=== PATIENT | female | born 1990 | race Caucasian/White ===

== ENCOUNTER 2016-10-21 08:07 | Emergency (ER) | payer BC ==
[2016-10-21 08:21] VITALS: BP 93/62
--- NOTE | 2016-10-21 08:45 | UC ---
Skin Complaint HPI - HPI Summary HPI Summary: 25 female about 48 hours s/p insect sting to left navarro was worse yesterday red and swollen hurts to touch hx of severe local reactions to insect sting - History of Current Complaint Chief Complaint: UCSkin Time Seen by Provider: 10/21/16 08:33 Stated Complaint: BEE STING LEFT LEG Hx Obtained From: Patient Hx Last Menstrual Period: 09/29/16 Onset/Duration: Gradual Onset, Lasting Hours Onset Severity: Moderate Current Severity: Mild Pain Intensity: 3 Pain Scale Used: 0-10 Numeric Location: Discrete Character: Swelling, Pruritus, Pain, Redness, Raised Aggravating: Touch Alleviating: Nothing Associated Signs & Symptoms: Positive: Tenderness - Allergy/Home Medications Allergies/Adverse Reactions: Allergies Allergy/AdvReac Type Severity Reaction Status Date / Time No Known Allergies Allergy Verified 10/21/16 08:21 Home Medications: Home Medications Diphenhydramine HCl [Benadryl Allergy 25 MG CAP] 25 mg PO PRN 10/21/16 [History] Review of Systems Constitutional: Negative Skin: Negative Eyes: Negative ENT: Negative Respiratory: Negative Cardiovascular: Negative Gastrointestinal: Negative Genitourinary: Negative Motor: Negative Neurovascular: Negative Musculoskeletal: Negative Neurological: Negative Psychological: Negative All Other Systems Reviewed And Are Negative: Yes PMH/Surg Hx/FS Hx/Imm Hx Previously Healthy: Yes - Surgical History Surgical History: Yes Surgery Procedure, Year, and Place: TONSILLECTOMY - Family History Known Family History: Positive: Hypertension Negative: Cardiac Disease, Diabetes - Social History Alcohol Use: Rare Substance Use Type: None Smoking Status (MU): Never Smoked Tobacco Physical Exam Triage Information Reviewed: Yes Appearance: Well-Appearing, No Pain Distress, Well-Nourished Vital Signs: Initial Vital Signs Temp 97.7 F 10/21/16 08:15 Pulse 82 10/21/16 08:15 Resp 14 10/21/16 08:15 BP 93/62 10/21/16 08:15 Pulse Ox 98 10/21/16 08:15 Vital Signs Reviewed: Yes Eyes: Positive: Conjunctiva Clear ENT: Positive: Hearing grossly normal. Negative: Nasal congestion, Nasal drainage, Trismus, Muffled/hoarse voice Neck: Positive: Supple, Nontender, No Lymphadenopathy Respiratory: Positive: Lungs clear, Normal breath sounds, No respiratory distress Cardiovascular: Positive: RRR, No Murmur. Negative: Tachycardia, Bradycardia Musculoskeletal: Positive: ROM Intact Neurological: Positive: Alert Psychological Exam: Normal Skin Exam: Other - see image Course/Dx - Diagnoses Provider Diagnoses: local reaction to insect sting Discharge - Discharge Plan Condition: Stable Disposition: HOME Prescriptions: Prednisone 60 mg PO DAILY #9 tab Patient Education Materials: Insect Bite or Sting (ED) Referrals: Rey Amezquita MD [Primary Care Provider] - 3 Days (if not better) Additional Instructions: continue current treatment Images Front/Back of Body, Lg ([place]): 1 - red/swollen/no retained stinger
== END 2016-10-21 08:53 | disposition home or self-care (01) ==
LOC: UCCORT 08:07
DX: S80.862A Insect bite (nonvenomous), left lower leg, initial encounter (principal); W57.XXXA Bitten or stung by nonvenomous insect and other nonvenomous arthropods, initial encounter; Y93.9 Activity, unspecified; Y92.9 Unspecified place or not applicable
CPT/HCPCS: 99212; G0463

== ENCOUNTER 2016-10-22 16:33 | Emergency (ER) | payer BC ==
[2016-10-22 17:23] VITALS: BP 108/59
[2016-10-22] MEDS ORDERED: Fluorescein Sodium TOPICAL* 1 MG TEST OPHTHALMIC ONE (17:24)
[2016-10-22] MEDS ORDERED: Tetracaine 0.5% OPTH.SOL 4 ML* 1 DROP BTL LEFT EYE ONE (17:24)
--- NOTE | 2016-10-22 17:33 | UC ---
Eye Complaint HPI - History of Current Complaint Chief Complaint: LLOYDEynegrita Stated Complaint: LEFT EYE COMPLAINT Time Seen by Provider: 10/22/16 17:23 Hx Obtained From: Patient Hx Last Menstrual Period: 09/28/16 ?: No Onset/Duration: Sudden Onset - left eye struck with a candy wrapper wielding toddler., Lasting Hours - 2, Still Present Timing: Constant Severity Initially: Severe Severity Currently: Severe Location of Injury: Globe Character: Sharp Aggravating Factor(s): Light, Blinking Alleviating Factor(s): Darkness Associated Signs And Symptoms: Positive: Photophobia Related History: Trauma - candy wrapper - Risk Factors Penetrating Injury Risk Factor: Negative Globe Rupture Risk Factors: Negative Acute Glaucoma Risk Factors: Negative Optic Artery Occlusion Risk Factors: Negative - Allergies/Home Medications Allergies/Adverse Reactions: Allergies Allergy/AdvReac Type Severity Reaction Status Date / Time No Known Allergies Allergy Verified 10/22/16 17:09 Home Medications: Home Medications NK [No Home Medications Reported] 10/22/16 [History Confirmed 10/22/16] PMH/Surg Hx/FS Hx/Imm Hx Respiratory History: Asthma - Surgical History Surgical History: Yes Surgery Procedure, Year, and Place: TONSILLECTOMY - Family History Known Family History: Positive: Cardiac Disease, Hypertension Negative: Diabetes - Social History Occupation: Employed Full-time Lives: With Family Alcohol Use: Rare Substance Use Type: None Smoking Status (MU): Never Smoked Tobacco Have You Smoked in the Last Year: No - Immunization History Most Recent Tetanus Shot: unknown Review of Systems Eyes: Photophobia All Other Systems Reviewed And Are Negative: Yes Physical Exam Triage Information Reviewed: Yes Appearance: Well-Appearing, Well-Nourished, Pain Distress - keeping eyes closed. Vital Signs: Initial Vital Signs Temp 98.8 F 10/22/16 17:09 Pulse 90 10/22/16 17:09 Resp 16 10/22/16 17:09 BP 108/59 10/22/16 17:09 Pulse Ox 100 10/22/16 17:09 Vital Signs Reviewed: Yes Eyes: Positive: Conjunctiva Inflamed - OS., Other: - Large fluorescein uptake over the central cornea OS. ENT: Positive: Pharynx normal, TMs normal Neck exam: Normal Respiratory Exam: Normal Cardiovascular Exam: Normal Musculoskeletal Exam: Normal Neurological Exam: Normal Psychological Exam: Normal Skin Exam: Normal Eye Complaint Course/Dx - Differential Dx/Diagnosis Differential Diagnosis/HQI/PQRI: Conjunctivitis, Corneal Abrasion, Glaucoma Provider Diagnoses: Left corneal abrasion. Discharge - Discharge Plan Condition: Stable Disposition: HOME Patient Education Materials: Corneal Abrasion (ED), Erythromycin (Into the eye ) Referrals: Rey Amezquita MD [Primary Care Provider] - Aldair Haque MD [Medical Doctor] - 2 Days (If the pain is not better by monday) Additional Instructions: EYE OINTMENT USE: Wash hands. Place 1/4" strip across tip of finger. Pull lower lid down with the index finger and stabilize the ointment finger with the middle finger and scrape the ointment off on the lid. Pull the lid out and let go as you look down.
[2016-10-22] MEDS ORDERED: Erythromycin OPTH OINT* APPLIC OINT LEFT EYE ONE (17:40)
== END 2016-10-22 18:05 | disposition home or self-care (01) ==
LOC: UCCORT 16:33
DX: S05.02XA Injury of conjunctiva and corneal abrasion without foreign body, left eye, initial encounter (principal); X58.XXXA Exposure to other specified factors, initial encounter; Y93.9 Activity, unspecified; Y92.9 Unspecified place or not applicable; J45.909 Unspecified asthma, uncomplicated
CPT/HCPCS: 99212; A9270-GY; G0463

== ENCOUNTER 2018-03-04 21:28 | Emergency (ER) | payer BC ==
[2018-03-04 21:45] VITALS: BP 119/74
[2018-03-04] MEDS ORDERED: Amoxicillin/Clavulanate TAB* 875 MG PO ONE (21:53)
--- NOTE | 2018-03-04 21:58 | UC ---
[facility] Dental HPI - HPI Summary HPI Summary: Patient woke up with pain in the right buccal area, thought she was having a problem with the tooth, feels like the right side of her face is swollen. - History of Current Complaint Chief Complaint: UCDentalProblem Stated Complaint: DENTAL Time Seen by Provider: 03/04/18 21:32 Hx Obtained From: Patient Hx Last Menstrual Period: 02/08/18 Onset/Duration: Sudden Onset, Lasting Days - 1 Severity: Severe Pain Intensity: 9 Aggravating Factor(s): Nothing Alleviating Factor(s): OTC Meds Related History: Swelling - Allergies/Home Medications Allergies/Adverse Reactions: Allergies Allergy/AdvReac Type Severity Reaction Status Date / Time No Known Allergies Allergy Verified 10/22/16 17:09 Home Medications: Home Medications Acetaminophen 3 each PO Q12HR 03/04/18 [History Confirmed 03/04/18] Ibuprofen 600 mg PO Q8H 03/04/18 [History Confirmed 03/04/18] PMH/Surg Hx/FS Hx/Imm Hx Previously Healthy: Yes - Surgical History Surgical History: Yes Surgery Procedure, Year, and Place: TONSILLECTOMY - Family History Known Family History: Positive: Cardiac Disease, Hypertension Negative: Diabetes - Social History Alcohol Use: Rare Substance Use Type: None Smoking Status (MU): Never Smoked Tobacco Have You Smoked in the Last Year: No - Immunization History Most Recent Tetanus Shot: unknown Review of Systems All Other Systems Reviewed And Are Negative: Yes Constitutional: Positive: Negative Skin: Positive: Negative Eyes: Positive: Negative ENT: Positive: Dental Pain Respiratory: Positive: Negative Cardiovascular: Positive: Negative Gastrointestinal: Positive: Negative Genitourinary: Positive: Negative Motor: Positive: Negative Neurovascular: Positive: Negative Musculoskeletal: Positive: Negative Neurological: Positive: Negative Psychological: Positive: Negative Is Patient Immunocompromised?: No Physical Exam Triage Information Reviewed: Yes Appearance: Well-Nourished, Ill-Appearing, Pain Distress Vital Signs: Initial Vital Signs Temp 98.4 F 03/04/18 21:42 Pulse 95 03/04/18 21:42 Resp 17 03/04/18 21:42 BP 119/74 03/04/18 21:42 Pulse Ox 98 03/04/18 21:42 Vital Signs Reviewed: Yes Eye Exam: Normal ENT Exam: Normal ENT: Positive: Pharyngeal erythema, TMs normal Dental: Positive: Cellulitis @ - inside of right oral cavity, Other: - neg for any dental involvement, swollen salivary duct noted. Neck exam: Normal Neck: Positive: Supple, Nontender, No Lymphadenopathy Respiratory Exam: Normal Respiratory: Positive: Chest non-tender, Lungs clear, Normal breath sounds Cardiovascular Exam: Normal Cardiovascular: Positive: RRR, No Murmur, Pulses Normal Bowel Sounds: Positive: Present Musculoskeletal Exam: Normal Neurological Exam: Normal Psychological Exam: Normal Skin Exam: Normal Dental Complaint Course/Dx - Course Course Of Treatment: hx obtained, exam performed ,meds reviewed, treated for sialadentitis - Differential Dx/Diagnosis Differential Diagnosis/Dx: Dental Abscess, Fractured Tooth, Peritonsillar Abcess , Pharyngitis Provider Diagnosis: Sialadenitis Discharge - Sign-Out/Discharge Documenting (check all that apply): Patient Departure All imaging exams completed and their final reports reviewed: No Studies - Discharge Plan Condition: Stable Disposition: HOME Prescriptions: Amoxicillin/Clavulanate TAB* [Augmentin TAB 875*] 875 mg PO BID #19 tab Patient Education Materials: Sialoadenitis (ED) Referrals: Rey Amezquita MD [Primary Care Provider] - Additional Instructions: 1. suck on sour foods, 2. Massage and milk the gland to release blocked saliva 3. Warm compresses to the right cheek 4. 500-650 of tylenol with 400 mg of ibuprofen every 4- 6 hours for pain 5. FOllow up as needed. - Billing Disposition and Condition Condition: STABLE Disposition: Home - Attestation Statements Provider Attestation: I was available for consult. This patient was seen by the NICOL. The patient was not presented to , seen by or examined by ca -Roland Mascorro MD
== END 2018-03-04 22:00 | disposition home or self-care (01) ==
LOC: UCCORT 21:28
DX: K11.20 Sialoadenitis, unspecified (principal)
CPT/HCPCS: 99212; A9270-GY; G0463

== ENCOUNTER 2019-03-19 15:03 | Emergency (ER) | payer BC ==
[2019-03-19 16:20] VITALS: BP 108/72
--- NOTE | 2019-03-19 16:24 | UC ---
Throat Pain/Nasal Marciano HPI - HPI Summary HPI Summary: 28 year old female with no PMH presents with c/o sore throat, left side, sinus congestion/ pressure worse on the left, left ear pain. no cough, no SOB. ~ 2 weeks ago had body aches, fatigue, has resolved. no difficulty breathing, no painful swallowing, no GI symptoms. - History of Current Complaint Chief Complaint: UCRespiratory Stated Complaint: L EAR PAIN/ST Time Seen by Provider: 03/19/19 16:20 Hx Obtained From: Patient Hx Last Menstrual Period: 03/01/19 ?: No Onset/Duration: Sudden Onset, Lasting Weeks - ~ 3 weeks Severity: Moderate Pain Intensity: 3 Pain Scale Used: 0-10 Numeric Cough: Nonproductive Associated Signs & Symptoms: Positive: Sinus Discomfort. Negative: Dysphagia, Wheezing, Hoarseness, Fever, Vomiting - Allergies/Home Medications Allergies/Adverse Reactions: Allergies Allergy/AdvReac Type Severity Reaction Status Date / Time No Known Allergies Allergy Verified 03/19/19 16:12 PMH/Surg Hx/FS Hx/Imm Hx Previously Healthy: Yes - Surgical History Surgical History: Yes Surgery Procedure, Year, and Place: TONSILLECTOMY - Family History Known Family History: Positive: Cardiac Disease, Hypertension Negative: Diabetes - Social History Occupation: Employed Full-time Alcohol Use: None Substance Use Type: None Smoking Status (MU): Never Smoked Tobacco Have You Smoked in the Last Year: No - Immunization History Most Recent Tetanus Shot: unknown Review of Systems All Other Systems Reviewed And Are Negative: Yes Constitutional: Negative: Fever, Chills, Fatigue ENT: Positive: Sore Throat, Ear Ache, Nasal Discharge, Sinus Congestion, Sinus Pain/Tenderness Respiratory: Negative: Shortness Of Breath, Cough Cardiovascular: Negative: Palpitations, Chest Pain Genitourinary: Positive: Negative Psychological: Positive: Negative Is Patient Immunocompromised?: No Physical Exam Triage Information Reviewed: Yes Appearance: No Pain Distress, Well-Nourished, Ill-Appearing - mild Vital Signs: Initial Vital Signs Temp 98.9 F 03/19/19 16:13 Pulse 90 03/19/19 16:13 Resp 16 03/19/19 16:13 BP 108/72 03/19/19 16:13 Pulse Ox 99 03/19/19 16:13 Vital Signs Reviewed: Yes Eyes: Positive: Conjunctiva Clear ENT: Positive: Hearing grossly normal, Pharynx normal, Nasal congestion, TMs normal, Sinus tenderness - b/l max, Uvula midline. Negative: Pharyngeal erythema, Nasal drainage, Tonsillar swelling, Tonsillar exudate Neck: Positive: Supple, No Lymphadenopathy, Tenderness @ - mild submand tenderness b/l. Negative: Nuchal Rigidity, Enlarged Nodes @ Respiratory: Positive: Chest non-tender, Lungs clear, Normal breath sounds, No respiratory distress, No accessory muscle use. Negative: Respiratory distress, Crackles, Rhonchi, Stridor, Wheezing Cardiovascular: Positive: RRR, No Murmur Musculoskeletal: Positive: Strength Intact Skin Exam: Normal Throat Pain/Nasal Course/Dx - Course Course Of Treatment: SInusitis: - Increase fluid intake - Antibiotics as directed - Humidifier at night to help with symptoms - Motrin/ tylenol as needed for pain, over the counter medications for symptoms - REturn if no improvement within 2-3 days - GO to ER with shortness of breath, difficulty breathing, fever > 102 after medications. - Differential Dx/Diagnosis Differential Diagnosis/HQI/PQRI: Sinusitis, URI Provider Diagnosis: Sinusitis Discharge ED - Sign-Out/Discharge Documenting (check all that apply): Patient Departure All imaging exams completed and their final reports reviewed: No Studies - Discharge Plan Condition: Good Disposition: HOME Prescriptions: Azithromyxin BALDEMAR (NF) [Z-Baldemar (Zithromax) 250 mg tabs #6] 2 tab PO .TODAY, THEN 1 DAILY #6 tab Patient Education Materials: Sinusitis (ED) Referrals: No Primary Care Phys,NOPCP [Primary Care Provider] - [facility] [Outside] Additional Instructions: - Increase fluid intake - Antibiotics as directed - Humidifier at night to help with symptoms - Motrin/ tylenol as needed for pain, over the counter medications for symptoms - REturn if no improvement within 2-3 days - GO to ER with shortness of breath, difficulty breathing, fever > 102 after medications. - Billing Disposition and Condition Condition: GOOD Disposition: Home
== END 2019-03-19 16:45 | disposition home or self-care (01) ==
LOC: UCCORT 15:03
DX: J32.9 Chronic sinusitis, unspecified (principal); H92.02 Otalgia, left ear; J02.9 Acute pharyngitis, unspecified
CPT/HCPCS: 87651; 99211; G0463